=== PATIENT | male | born 1965 | race Caucasian/White ===

== ENCOUNTER 2020-04-09 10:27 | Outpatient (CLI) | payer OTHER, SELFPAY ==
--- NOTE | ~2020-04-09 | XR_ITS ---
EXAMINATION: XR chest 2V EXAM DATE: 04/09/2020 10:45 INDICATION: Midsternal chest pain, intermittent. TECHNIQUE: Frontal and lateral projections of the chest obtained and reviewed. Comparison is made to prior examination from 01/31/2016. FINDINGS: The lungs are clear. There are no pleural effusions. The cardiomediastinal silhouette is within normal limits. There is no pneumothorax suspected. The bones and soft tissues are unremarkab le. IMPRESSION: Unremarkable chest x-ray exam. Reviewed, dictated and finalized at location A.
== END 2020-04-09 10:28 | disposition home or self-care (01) ==
LOC: ANHIMG 10:32
PROVIDERS: PCP Family Medicine; Visit Provider Physician Assistant
DX: R07.89 Other chest pain (principal)
CPT/HCPCS: 71046

== ENCOUNTER 2022-02-19 12:09 | Outpatient (CLI) | payer OTHER, SELFPAY ==
--- NOTE | ~2022-02-19 | XR_ITS ---
EXAMINATION: XR foot RT min 3V DATE: 02/19/2022 12:29 INDICATION: Chronic right hindfoot pain at the calcaneus TECHNIQUE: Dorsoplantar, two oblique and lateral views of the right foot were obtained. COMPARISON: None. FINDINGS: Alignment is normal. Corticated ossicle at the tip of the lateral malleolus likely either chronic unu nited fracture or heterotopic ossification related to chronic lateral ankle sprain. Mild flattening o f the articular surface at the head of the second metatarsal consistent with osteonecrosis (Freiberg' s infraction). No acute fracture. Polyarticular osteoarthritis, moderate severity at the first metata rsophalangeal joint and mild at the calcaneocuboid and multiple tarsal metatarsal and interphalangeal joints. Moderate sized plantar calcaneal spur. No cortical erosions. Soft tissues are unremarkable. IMPRESSION: 1. Chronic degenerative and posttraumatic changes at the right foot and ankle as detailed above. No a cute osseous abnormality. Reviewed, dictated and finalized at location B. IMPRESSION: 1. Chronic degenerative and posttraumatic changes at the right foot and ankle a s detailed above. No acute osseous abnormality.
== END 2022-02-19 12:10 | disposition home or self-care (01) ==
PROVIDERS: PCP Family Medicine; Visit Provider Nurse Practitioner Family
DX: M19.071 Primary osteoarthritis, right ankle and foot (principal)
CPT/HCPCS: 73630

== ENCOUNTER 2022-07-16 12:08 | Outpatient (CLI) | payer OTHER, SELFPAY ==
--- NOTE | ~2022-07-16 | XR_ITS ---
EXAMINATION: XR chest 2V 07/16/2022 12:38 INDICATION: Dyspnea. Shortness of breath. PROCEDURE: 2 view chest COMPARISON: 04/09/2020 FINDINGS: The lungs are clear. The cardiomediastinal silhouette is within normal limits. There are no pleural effusions. There is no pneumothorax suspected. IMPRESSION: 1: NO ACUTE CARDIOPULMONARY DISEASE. Reviewed, dictated and finalized at location B.
== END 2022-07-16 12:09 | disposition home or self-care (01) ==
PROVIDERS: PCP Family Medicine; Visit Provider Family Medicine
DX: R06.09 Other forms of dyspnea (principal)
CPT/HCPCS: 71046

== ENCOUNTER 2022-07-28 09:10 | Outpatient (CLI) | payer OTHER, SELFPAY ==
--- NOTE | 2022-07-28 11:55 | WPDPFTINT ---
PFT Procedure Performed PFT Procedure Performed Spirometry with Pre/Post Bronchodilator Plethysmography (Lung Vol) Diffusing Cap (DLCO) Flow Vol Loop PFT Interpretation Lung volumes were measured with the body plethysmography method. The diminished expiratory reserve volume is related to obesity. The remaining lung volumes are unremarkable. Spirometry showed normal expiratory flow rates and a normal FEV1 to FVC ratio of 73%. Following administration of a bronchodilator there was no significant change in the expiratory flow rates. Lung diffusion capacity is within the normal range at 96% predicted. The flow volume loop is unremarkable. In comparison to previous study in 2016, the post bronchodilator FEV1 is now lower by approximately 0.3 L whereas post-bronchodilator FVC, total lung capacity and lung diffusion capacity are essentially unchanged. Impression: Spirometry, lung volumes, and lung diffusion capacity within the normal range.
== END 2022-07-28 09:11 | disposition home or self-care (01) ==
LOC: ANHPFT 09:11
PROVIDERS: PCP Family Medicine; Visit Provider Physician Assistant
DX: R06.09 Other forms of dyspnea (principal)
CPT/HCPCS: 94060; 94726; 94729

== ENCOUNTER 2024-01-21 17:12 | Emergency (ER) | payer OTHER, SELFPAY ==
--- NOTE | ~2024-01-21 | XR_ITS ---
EXAMINATION: XR lumbar spine 2-3V DATE: 01/21/2024 17:40 INDICATION: Left-sided low back pain. TECHNIQUE: 3 views of the lumbar spine were obtained. COMPARISON: None. FINDINGS: Bone alignment is normal. There is mild chronic anterior wedging of T12 vertebral body. Int ervertebral disc heights are normal. There are endplate osteophytes at all levels. There is multileve l mild to moderate facet joint osteoarthritis. IMPRESSION: 1. Mild lumbar spondylosis. Reviewed, dictated and finalized at location E. IMPRESSION: 1. Mild lumbar spondylosis.
[2024-01-21 17:21] VITALS: BP 146/79; PULSE 82; RESP 18; TEMP 37.1; O2SAT 97
--- NOTE | 2024-01-21 17:33 | ED.BACK ---
HPI - Back Pain/Injury General Chief Complaint: Back Pain/Injury Stated Complaint: Low Back Pain Time Seen by Provider: 01/21/24 17:30 Source: patient, RN notes reviewed and old records reviewed Mode of arrival: ambulatory Limitations: no limitations History of Present Illness HPI Narrative: 58 year old male presents to [facility] care with complaints of left lower back pain since the first week in December after pulling fence posts and moving wood which is not improving in spite of using heat, ice, taking Ibuprofen and Tylenol and doing stretches. Patient reports that he walks a lot at work and goes up stairs and this is aggravating pain. Patient reports that pain in in his left lower back denies any radiation of pain in his legs or any tingling or numbness to legs or feet. Patient reports no difficulty with bowel movement or urination, denies any saddle paraesthesia. MD elicited complaint: back pain Onset (ago): week(s) (4 weeks) Severity: moderate Quality: sharp (at times) and aching Location: lumbar spine (left SI area) Exacerbating factors: movement, walking and other (stairs) Treatments prior to arrival: cold therapy, heat therapy, NSAIDS, acetaminophen and other (stretches) Work related injury: No Related Data Allergies Allergy/AdvReac Type Severity Reaction Status Date / Time No Known Allergies Allergy Verified 01/21/24 17:21 Review of Systems Review of Systems: CONSTITUTIONAL: Denies fever, chills, or sweats. EYES: Denies visual changes, redness, or discharge. ENT: Denies rhinorrhea, congestion, sore throat, or otalgia. CARDIOVASCULAR: Denies chest pain, palpitations, or edema. RESPIRATORY: Denies cough or dyspnea. GASTROINTESTINAL: Denies abdominal pain, nausea, vomiting, or diarrhea. GENITOURINARY: Denies dysuria or hematuria. SKIN: Denies rash or itching. MUSCULOSKELETAL: Reports left lumbar back pain, joint pain, or myalgia. NEUROLOGIC: Denies headache, numbness, or weakness. PSYCHIATRIC: Denies anxiety or depression. All systems reviewed & are unremarkable except as noted in HPI and below PMFSH Past Medical History Medical History Diabetes Gout IFG (impaired fasting glucose) Mixed hyperlipidemia Osteoarthritis of right knee Wellness examination Surgical History Surgical History H/O hand surgery right S/P total knee arthroplasty r-side Family History Family History Father Hypertension Family history of coronary artery disease Mother Hypertension Family history of diabetes mellitus in first degree relative Social History Social History Social History: Smoking status: Former smoker Second hand tobacco smoke exposure: No Alcohol intake: current Drinks per week: 6 Substance use: never Substance use type: does not use Do You Feel Safe in your Home?: Yes Lack of Transportation: No Lack of Food: Never True Current Housing: I Have Housing Concerned About Future Housing: No Difficulty Paying Gas/Electric Bills: No Difficulty Paying for Meds: No Currently Unemployed: No Education: Don't Know Difficulty w/ Childcare or Family Care: No Living arrangements: with family Occupation/Education: occupation 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 There is no relevant family history pertinent to the presenting complaint Exam Narrative: GENERAL: Well-appearing, well-nourished, and in mild acute distress due to pain in left lumbar back region HEAD: Normocephalic
== END 2024-01-21 18:25 | disposition home or self-care (01) ==
PROVIDERS: Emergency Provider Registered Nurse; PCP Family Medicine
DX: M54.50 Low back pain, unspecified (principal); Z87.891 Personal history of nicotine dependence; E11.9 Type 2 diabetes mellitus without complications; M10.9 Gout, unspecified; E78.2 Mixed hyperlipidemia; M17.11 Unilateral primary osteoarthritis, right knee; Z96.651 Presence of right artificial knee joint
CPT/HCPCS: 72100; 99213; G0463

== ENCOUNTER 2025-03-20 11:29 | Outpatient (CLI) | payer OTHER, SELFPAY ==
--- NOTE | ~2025-03-20 | XR_ITS ---
Right Hand Technique: PA, oblique, and lateral views were obtained. Clinical History: Pain Findings: No acute fracture or dislocation is seen. Osseous alignment is anatomic. There is moderate degenerative change of the first CMC joint. There are mild degenerative changes scattered at the inte rphalangeal joints of the fingers. Soft tissues are unremarkable. Impression: Degenerative changes, as above. Reviewed, dictated and finalized at location . Impression: Degenerative changes, as above.
--- OUTSIDE RECORDS SUMMARY | 2025-03-20 11:56 | XMS_ITS | Referral Summary ---
Author Organization [facility] Address [address] [place] [address] Care Team Providers Care Oracle Database Developer Name Role Phone Cody Gregg MD Primary Care Provider Allergies No known active allergies Medications testosterone (TESTIM,VOGELXO ) 50 mg/5 gram (1 %) gel Apply topically every morning 0 Active lisinopriL (PRINIVIL,ZESTR IL) 10 mg tablet Take 10 mg by mouth every morning 0 Active vardenafiL (LEVITRA) 10 mg tablet Take 10 mg by mouth daily as needed 0 Active allopurinoL (ZYLOPRIM) 100 mg tablet Take 100 mg by mouth every morning 0 Active omeprazole (PriLOSEC) 40 mg capsule Take 40 mg by mouth every morning 0 Active pseudoephedrine (SUDAFED) 30 mg tabletIndicatio ns:Nasal Congestion Take 30 mg by mouth every 4 (four) hours as needed for congestion Active aspirin 325 mg enteric coated tabletIndicatio ns:Deep Vein Thrombosis Prevention Take 1 tablet (325 mg total) by mouth 2 (two) times a day 120 tablet 0 Active lidocaine (XYLOCAINE) 10 mg/mL (1 %) injection lidocaine (PF) 10 mg/mL (1 %) injection solution In office injection administered by the provider Active Active Problems Problem Noted Date Diagnosed Date Primary osteoarthritis of right knee 05/24/2020 Overview (05/24/2020): Added automatically from request for surgery [id number] 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 Overview (12/26/2016): TESTICULAR HYPOFUNC NEC Social History Tobacco Use Types Packs/Day Years Used Date Smoking Tobacco: Never Smokeless Tobacco: Never Alcohol Use Standard Drinks/Week Comments Yes 14 (1 standard drink = 0.6 oz pu re alcohol) Sex and Gender Information Value Date Recorded Sex Assigned at Not on file 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 Gender Identity Not on file Sexual Orientation Not on file Last Filed Vital Signs Vital Sign Reading Time Taken Comments Blood Pressure 139/60 06/08/2020 4:07 PM CDT Pulse 86 06/08/2020 4:07 PM CDT Temperature 37 C (98.6 F) 06/08/2020 4:07 PM CDT Respiratory Rate 16 06/08/2020 4:07 PM CDT Oxygen Saturation 97% 06/08/2020 4:07 PM CDT Inhaled Oxygen Concentration - - Weight 98.9 kg (218 lb) 06/07/2020 5:42 AM CDT Height 177 cm (5' 9.69) 06/07/2020 5:42 AM CDT Body Mass Index 31.56 06/07/2020 5:42 AM CDT Plan of Treatment Not on file Medical Devices Implanted Type Area Darkroom Technician Device Identifier Shelf Expiration Date Model / Serial / Lot [employer] tho [id number] [employer] Cruciate Retain Knee Right 6 Component - [id number] Implanted:Qty: 1 on 06/07/2020 by Boogie Keys MD at [facility] Right: Knee [employer] [id number] 03/07/2030 [id number] / / [id number] [employer] [id number] Lyn Ii Cement Right Knee 6 Baseplate Tibial Titanium - [id number] Implanted:Qty: 1 on 06/07/2020 by Boogie Keys MD at [facility] Right: Knee [employer] [id number] 11/14/2029 [id number] / / [id number] [employer] [id number] Legion 9mm Cruciate Retaining High Flexion Knee 5-6 Insert Tibial - [id number] Implanted:Qty: 1 on 06/07/2020 by Boogie Keys MD at [facility] Right: Knee [employer] [id number] 03/25/2030 [id number] / / [id number] [employer] tho [id number] Lyn Ii 35mm Resurface Component Patellar - [id number] Implanted:Qty: 1 on 06/07/2020 by Boogie Keys MD at [facility] Right: Knee [employer] [id number] 03/11/2030 [id number] / / [id number] [employer] 6191-1-010 Simplex P Radiopaque Full Dose Cement Bone Sterile - [id number] Implanted:Qty: 1 on 06/07/2020 by Boogie Keys MD at [facility] Right: Knee [employer] 6191-1-010 / / [employer] 6191-1-010 Simplex P Radiopaque Full Dose Cement Bone Sterile - [id number] Implanted:Qty: 1 on 06/07/2020 by Boogie Keys MD at [facility] Right: Knee [employer] 6191-1-010 / / Insurance [employer] HMO Member Subscriber Plan / Payer (Ef fective 2020-Present) Name:Johnie Flores Member ID:Not on file Relation to Subscriber:Not on file Subscriber ID:Not on file Payer ID:[id number] Group ID:Not on file Type:[employer] HMO/PPO Address[address] [facility] OPEN ACCESS Advance Directives For more information, please contact: [phone] * Full Code (Latest Code Status on File) Date Activated Date Inactivated Comments 06/07/2020 12:24 PM 06/08/2020 10:34 PM Care Teams Oracle Database Developer Relationship Specialty Start Date End Date Cody Gregg MD [address] [facility] [address] [place] [address] PCP - General Family Medicine 05/15/20
--- OUTSIDE RECORDS SUMMARY | 2025-03-20 11:56 | XMS_ITS | Clinical Summary ---
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 Overview (12/26/2016): TESTICULAR HYPOFUNC NEC Surgical History Surgery Date Site/Laterality Comments HAND SURGERY NASAL SEPTUM SURGERY Medical History Medical History Date Comments Hx Other Medical male hypogonadi sm GERD (gastroesophageal reflux disease) Hypertension Family History Medical History Relation Name Comments Coronary artery disease Brother 1 Yasmani nary artery disease; Hypertension Brother 2 Hypertension; Other Brother 3 No history of D iabetes mellitus; Heart disease Father Anesthesia problems Neg Hx Stroke Neg Hx Relation Name Status Comments Brother 1 Brother 2 Brother 3 Father Social History Tobacco Use Types Packs/Day Years Used Date Smoking Tobacco: Never Smokeless Tobacco: Never Alcohol Use Standard Drinks/Week Comments Yes 14 (1 standard drink = 0.6 oz pu re alcohol) Sex and Gender Information Value Date Recorded Sex Assigned at Not on file 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[employer] Gender Identity Not on file Sexual Orientation Not on file Obstetrics History Last Filed Vital Signs Vital Sign Reading [...] on file Medical Devices Implanted Type Area Supervisor [employer] Device Identifier Shelf Expiration Date Model / Serial / Lot [employer] tho [id number] Lyn [employer]i Legion Spc Cruciate Retain Knee Right 6 Component - [id number] Implanted:Qty: 1 on 06/07/2020 by Boogie Keys MD at [facility] Right: Knee [employer] [id number] 03/07/2030 [id number] / / [id number] [employer] [id number] Lyn Ii Cement Right Knee 6 Baseplate Tibial Titanium - [id number] Implanted:Qty: 1 on 06/07/2020 by Boogie Keys MD at [facility] Right: Knee [employer] [id number] 11/14/2029 [id number] / / [id number] [employer] [id number] Legion 9mm Cruciate Retaining High Flexion Knee 5-6 Insert Tibial - [id number] Implanted:Qty: 1 on 06/07/2020 by Boogie Keys MD at [facility] Right: Knee [employer] [id number] 03/25/2030 [id number] / / [id number] [employer] [id number] Lyn Ii 35mm Resurface Component Patellar - [id number] Implanted:Qty: 1 on 06/07/2020 by Boogie Keys MD at [facility] Right: Knee [employer] [id number] 03/11/2030 [id number] / / [id number] [employer] 6191-1-010 Simplex P Radiopaque Full Dose Cement Bone Sterile - [id number] Implanted:Qty: 1 on 06/07/2020 by Boogie Keys MD at [facility] Right: Knee [employer] 6191-1-010 / / [employer] 6191-1-010 Simplex P Radiopaque Full Dose Cement Bone Sterile - [id number] Implanted:Qty: 1 on 06/07/2020 by Boogie Keys MD at [facility] Right: Knee [employer] 6191-1-010 / / Insurance [facility] [id number] [employer] HMO Member Subscriber Plan / Payer (Ef fective 2020-Present) Name:Johnie Flores Member ID:Not on file Relation to Subscriber:Not on file Subscriber ID:Not on file Payer ID:[id number] Group ID:Not on file Type:[employer] HMO/PPO Address: [place] [id number] [address] [employer] OPEN ACCESS Advance Directives For more information, please contact: [phone] * Full Code (Latest Code Status on File) Date Activated Date Inactivated Comments 06/07/2020 12:24 PM 06/08/2020 10:34 PM Care Teams Water Commissioner Relationship Specialty Start Date End Date Cody Gregg MD [address] [facility] [address] [place] [address] PCP - General Family Medicine 05/15/20
--- OUTSIDE RECORDS SUMMARY | 2025-03-20 11:56 | XMS_ITS | Clinical Summary ---
Author Organization [facility] Address [address] [address] Phone Care Team Providers Care Chicken Cutter Name Role Phone Cody Gregg MD Primary Care Provider Allergies No known active allergies Medications allopurinol (ZYLOPRIM) 100 MG Tablet 07/21/2017 Active CIALIS 20 MG Tablet 07/21/2017 Active testosterone (ANDROGEL) 50 MG/5GM (1%) Gel 07/21/2017 Act roddy TraZODone & Diet Manage Prod (TRAZAMINE) 50 MG Misc Take by mouth nightly. Active cetirizine (ZYRTEC ALLERGY) 10 MG Tablet Take 10 mg by mouth daily. Active naproxen sodium (ANAPROX) 220 MG TabletIndication s:pt takes as needed Take 220 mg by mouth 2 times daily (with meals). Active ascorbic acid (ASCORBIC ACID) 500 MG Tablet Take 500 mg by mouth daily. Active Cyanocobalamin (VITAMIN B 12 PO) Take by mouth. Active omeprazole (PRILOSEC) 40 MG CAPSULE DELAYED RELEASE Take 1 Cap by mouth daily. 90 Cap 08/06/2018 Active Family History Medical History Relation Name Comments Heart Disease Father Diabetes Mother Hypertension Mother Colon Cancer Paternal Grandfather ? Relation Name Status Comments Father Alive Mother Alive Paternal Grandfather Social History Tobacco Use Types Packs/Day Years Used Date Smoking Tobacco: Never Smokeless Tobacco: Never Alcohol Use Standard Drinks/Week Comments Yes 0 (1 standard drink = 0.6 oz pur e alcohol) Sex and Gender Information Value Date Recorded Sex Assigned at Not on file Legal Sex Male 7:13 PM CDT Gender Identity Not on file Sexual Orientation Not on file Last Filed Vital Signs Vital Sign Reading Time Taken Comments Blood Pressure 134/88 08/17/2017 9:22 AM COST ESTIMATING CLERK Pulse 83 08/17/2017 9:22 AM COST ESTIMATING CLERK Temperature 35.9 C (96.7 F) 08/17/2017 9:22 AM COST ESTIMATING CLERK Respiratory Rate 18 08/17/2017 9:22 AM COST ESTIMATING CLERK Oxygen Saturation 93% 08/17/2017 9:22 AM COST ESTIMATING CLERK Inhaled Oxygen Concentration - - Weight 101.2 kg (223 lb) 08/17/2017 9:22 AM COST ESTIMATING CLERK Height 177.8 cm (5' 10) 08/17/2017 9:22 AM COST ESTIMATING CLERK Body Mass Index 32 08/17/2017 9:22 AM COST ESTIMATING CLERK Plan of Treatment Health Maintenance Due Date Last Done Comments Hepatitis C Virus (HCV) Screening 1967 TdaP Immunization 1967 Hepatitis B Immunization (1 of 3 - 19+ 3-dose series) 1986 Colonoscopy 2012 Colorectal Cancer Screening 2012 Cologuard 2017 Immunochemical Fecal Occult Blood 2017 Pneumococcal Immunization (5 0+ years) (1 of 1 - PCV) 2017 Zoster Immunization (1 of 2) 2017 PSA Discussion 2022 Influenza Immunization (#1) 2024 SARS-COV-2 Immunization ( - 2023- season) 2024 Respiratory Syncytial Virus (RSV) Immunization (Adult) (1 - 1-dose 75+ series) 2042 Meningococcal Immunization (ACWY) Aged Out No longer eligible based on patient's age to complete this topic Pneumococcal Immunization Combined Aged Out No longer eligible based on patient's age to complete this topic Rotavirus Immunization Aged Out No lo nger eligible based on patient's age to complete this topic Insurance Disrupt [facility] OAP Care Teams Chicken Cutter Relationship Specialty Start Date End Date Cody Gregg MD [address] [place] [address] PCP - General Family Medicine 08/17/17
== END 2025-03-20 11:30 | disposition home or self-care (01) ==
PROVIDERS: PCP Family Medicine; Visit Provider Physician Assistant
DX: M18.9 Osteoarthritis of first carpometacarpal joint, unspecified (principal); M19.041 Primary osteoarthritis, right hand
CPT/HCPCS: 73130

== ENCOUNTER 2025-06-29 00:09 | Day surgery (SDC) | payer OTHER, SELFPAY ==
[2025-06-20 10:39] VITALS: BMI 33.0
[2025-06-29 06:21] VITALS: BP 116/67; PULSE 76; RESP 18; TEMP 36.2; O2SAT 100
[2025-06-29] MEDS: LACTATED RINGERS 1,000 ML 150 ML IV CONT (06:36)
--- NOTE | 2025-06-29 07:28 | PM.HPGS ---
History of Present Illness History of Present Illness Consent: Risks, benefits, and alternatives have been discussed and questions answered. Patient agrees to proceed with procedure. Chief complaint: Personal history of colon polyps, unspecified Narrative: Johnie Flores is a 60 year old male with colon polyp in 2017 Review of Systems Review of Systems: All systems reviewed & are unremarkable except as noted in HPI and below PMFSH Past Medical History Medical History (Updated 06/29/25 @ 07:30 by Juventino Khalil MD) Colon polyp Diabetes IFG (impaired fasting glucose) Mixed hyperlipidemia Gout Wellness examination Osteoarthritis of right knee Surgical History Surgical History H/O hand surgery right S/P total knee arthroplasty r-side Family History Family History Father Hypertension Family history of coronary artery disease Mother Hypertension Family history of diabetes mellitus in first degree relative Social History Social History Social History: Smoking status: Never smoker Second hand tobacco smoke exposure: No Alcohol intake: current Drinks per week: 6 Substance use: never Substance use type: does not use Do You Feel Safe in your Home?: Yes Lack of Transportation: No Lack of Food: Never True Current Housing: I Have Housing Concerned About Future Housing: No Difficulty Paying Gas/Electric Bills: No Difficulty Paying for Meds: No Currently Unemployed: No Education: Don't Know Difficulty w/ Childcare or Family Care: No Living arrangements: with family Occupation/Education: occupation 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 Gender identity (if verbalized by the patient): Male Sexual Orientation (if Verbalized by the Patient): Straight or Heterosexual Spiritual care concerns: No Meds Home Medications and Allergies Home Medications ?Medication ?Instructions ?Recorded ?Confirmed ?Type blood-glucose meter (Accu-Chek #1 ea 02/08/24 03/20/25 Rx Guide Glucose Meter) lancets (Accu-Chek Fastclix Lancet #100 ea 02/08/24 03/20/25 Rx Drum) pen needle, diabetic 32 gauge x #100 ea 02/29/24 03/20/25 Rx 5/32 (BD Ultra-Fine Nithya Pen Needle) blood sugar diagnostic (Accu-Chek #100 ea 07/24/24 03/20/25 Rx Guide test strips) atorvastatin 20 mg tablet See Rx Instructions .Route 10/12/24 06/20/25 Rx .COMPLEX #90 tabs vardenafil 10 mg tablet See Rx Instructions .Route 10/27/24 06/20/25 Rx .COMPLEX #18 tabs omeprazole 40 mg capsule,delayed See Rx Instructions .Route 01/06/25 06/20/25 Rx release .COMPLEX #90 caps semaglutide 1 mg/dose (4 mg/3 mL) 1 mg (0.75 mL) subcut WEEKLY #3 mL 03/20/25 06/20/25 Rx subcutaneous pen injector testosterone 50 mg/5 gram (1 %) 200 mg transdermal QAM 90 days 03/27/25 Rx transdermal gel #1,800 grams allopurinol 100 mg tablet See Rx Instructions .Route 04/12/25 06/20/25 Rx .COMPLEX #180 tabs tamsulosin 0.4 mg capsule 0.8 mg (2 x 0.4 mg) PO DAILY #180 04/12/25 06/20/25 Rx caps fenofibrate 160 mg tablet 160 mg PO DAILY #90 tabs 04/24/25 06/20/25 Rx lisinopril 30 mg tablet 30 mg PO DAILY #90 tabs 05/02/25 06/20/25 Rx acetaminophen 325 mg tablet 325 mg PO ONCE PRN pain 06/20/25 06/20/25 History (Aminofen) Allergies Allergy/AdvReac Type Severity Reaction Status Date / Time No Known Allergies Allergy Verified 06/29/25 06:20 Vital Signs Vital Signs - 24 hr 06/29/25 06:21 Temperature 97.1 F L Pulse Rate 76 Respiratory Rate 18 Blood Pressure 116/67 Pulse Oximetry 100 Oxygen Delivery Room Air Exam Const: General: comfortable and no acute distress HENMT: Face/Nose/Sinus: Normal nares present Eyes: General: appearance normal, both eyes and all related structures Neck: Neck: no JVD Resp: Auscultation: clear to auscultation bilaterally Cardio: Rate: regular rate Rhythm: regular rhythm GI: Inspection: non-distended GI Palp: Yes Soft to palpation Skin: General skin exam: normal color Extrem: General: normal to inspection Psych: Mental Status: mental status grossly normal Assessment and Plan Assessment and plan (1) Colon polyp: Code(s): K63.5 - Polyp of colon Status: Acute Assessment and Plan: colonoscopy
--- NOTE | 2025-06-29 07:29 | WPDANESEPPF ---
Anes - Initial Pre Proc Eval Procedure: Operation Date: 06/29/25 07:30 Proposed Procedures p Screening Colonoscopy - Juventino Khalil MD Date/Time: 06/29/25 07:29 Surgeon: Juventino Khalil MD Pre Op Diagnosis: Personal history of colon polyps, unspecified Patient Data Age: 60 Gender: M Height: 1.78 m Weight: 101.4 kg Last Vital Signs Temp 97.1 F L 06/29/25 06:21 Pulse 76 06/29/25 06:21 Resp 18 06/29/25 06:21 BP 116/67 06/29/25 06:21 Pulse Ox 100 06/29/25 06:21 O2 Del Method Room Air 06/29/25 06:21 Allergies Allergy/AdvReac Type Severity Reaction Status Date / Time No Known Allergies Allergy Verified 06/29/25 06:20 Home Medications ?Medication ?Instructions ?Recorded ?Confirmed ?Type blood-glucose meter (Accu-Chek #1 ea 02/08/24 03/20/25 Rx Guide Glucose Meter) lancets (Accu-Chek Fastclix Lancet #100 ea 02/08/24 03/20/25 Rx Drum) pen needle, diabetic 32 gauge x #100 ea 02/29/24 03/20/25 Rx 5/32 (BD Ultra-Fine Nithya Pen Needle) blood sugar diagnostic (Accu-Chek #100 ea 07/24/24 03/20/25 Rx Guide test strips) atorvastatin 20 mg tablet See Rx Instructions .Route 10/12/24 06/20/25 Rx .COMPLEX #90 tabs vardenafil 10 mg tablet See Rx Instructions .Route 10/27/24 06/20/25 Rx .COMPLEX #18 tabs omeprazole 40 mg capsule,delayed See Rx Instructions .Route 01/06/25 06/20/25 Rx release .COMPLEX #90 caps semaglutide 1 mg/dose (4 mg/3 mL) 1 mg (0.75 mL) subcut WEEKLY #3 mL 03/20/25 06/20/25 Rx subcutaneous pen injector testosterone 50 mg/5 gram (1 %) 200 mg transdermal QAM 90 days 03/27/25 Rx transdermal gel #1,800 grams allopurinol 100 mg tablet See Rx Instructions .Route 04/12/25 06/20/25 Rx .COMPLEX #180 tabs tamsulosin 0.4 mg capsule 0.8 mg (2 x 0.4 mg) PO DAILY #180 04/12/25 06/20/25 Rx caps fenofibrate 160 mg tablet 160 mg PO DAILY #90 tabs 04/24/25 06/20/25 Rx lisinopril 30 mg tablet 30 mg PO DAILY #90 tabs 05/02/25 06/20/25 Rx acetaminophen 325 mg tablet 325 mg PO ONCE PRN pain 06/20/25 06/20/25 History (Aminofen) Laboratory Tests 06/29/25 06:34 POC Capillary Glucose 105 mg/dl (65-105) Patient hx anesthesia problems: none Family hx anesthesia problems: none Results Review: All pre-operative results and documents have been reviewed as part of the pre-operative evaluation. [facility] Past Medical History Medical History Diabetes IFG (impaired fasting glucose) Mixed hyperlipidemia Gout Wellness examination Osteoarthritis of right knee Surgical History Surgical History H/O hand surgery right S/P total knee arthroplasty r-side Family History Family History Father Hypertension Family history of coronary artery disease Mother Hypertension Family history of diabetes mellitus in first degree relative Social History Social History Social History: Smoking status: Never smoker Second hand tobacco smoke exposure: No Alcohol intake: current Drinks per week: 6 Substance use: never Substance use type: does not use Do You Feel Safe in your Home?: Yes Lack of Transportation: No Lack of Food: Never True Current Housing: I Have Housing Concerned About Future Housing: No Difficulty Paying Gas/Electric Bills: No Difficulty Paying for Meds: No Currently Unemployed: No Education: Don't Know Difficulty w/ Childcare or Family Care: No Living arrangements: with family Occupation/Education: occupation 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 Gender identity (if verbalized by the patient): Male Sexual Orientation (if Verbalized by the Patient): Straight or Heterosexual Spiritual care concerns: No Anes - Eval Final PreProcedure Day of Procedure 06/29/25 07:29 Patient weight: obese Lungs: normal air movement Airway: Mallampati scale class II Neurological: alert and oriented Last oral intake: >/= 8 hours ASA classification: III Emergent: no Anesthetic plan: proceed Anesthesia type and monitoring: general GIVS and standard monitoring Results Review: All pre-operative results and documents have been reviewed as part of the pre-operative evaluation. HTN, hyperlipidemia, hx of GLP1 use, off 3 days without early satiety/nausea. Informed Consent: The patient's anesthetic plan and its attendant risks and benefits were discussed with the patient/family/POA. Questions were solicited and answers provided to the satisfaction of the patient/family/POA.
--- NOTE | 2025-06-29 07:42 | S_PTH ---
PATIENT: Johnie Flores LOC: [facility]#:[id number] AGE/SX: 60/M ROOM: RE06/29/[address]: Juventino Khalil MD : [id number] BED: DIS: 06/29/2025 SPEC #: [id number] RECD: 06/29/25 08:44 STATUS: YESY RESonja #: [id number] BRIANA: 06/29/25 07:[address]: Juventino Khalil DEPT: [facility] Surgical RECD BY: Vandana Gray ENTERED: 06/29/25 08:45 SP TYPE: Surgical OTHR DR: Cody Gregg MD Tissues: A - Colon Polypectomy B - Colon Polypectomy C - Colon Polypectomy Procedures: Hematoxylin and Eosin Stain Gross and Microscopic Level 4
[2025-06-29 07:45] VITALS: BP 88/55; PULSE 68; RESP 20; O2SAT 98
[2025-06-29 07:55] VITALS: BP 104/64; PULSE 67; RESP 18; O2SAT 98
[2025-06-29 08:05] VITALS: BP 105/68; PULSE 70; RESP 18; O2SAT 99
== END 2025-06-29 08:11 | disposition home or self-care (01) ==
PROVIDERS: PCP Family Medicine; Referring Provider Physician Assistant; Visit Provider Internal Medicine Gastroenterology
PROC: 0DJD8ZZ Inspection of Lower Intestinal Tract, Via Natural or Artificial Opening Endoscopic (ICD-10-PCS; CPT 45378; principal; 2025-06-29 07:30)
DX: Z12.11 Encounter for screening for malignant neoplasm of colon (principal); D12.2 Benign neoplasm of ascending colon; D12.3 Benign neoplasm of transverse colon; D12.8 Benign neoplasm of rectum; K57.30 Diverticulosis of large intestine without perforation or abscess without bleeding; I10 Essential (primary) hypertension; E11.9 Type 2 diabetes mellitus without complications; E78.2 Mixed hyperlipidemia; M17.11 Unilateral primary osteoarthritis, right knee; M10.9 Gout, unspecified; E66.9 Obesity, unspecified; Z68.32 Body mass index [BMI] 32.0-32.9, adult; Z79.85 Long-term (current) use of injectable non-insulin antidiabetic drugs; Z98.890 Other specified postprocedural states; Z82.49 Family history of ischemic heart disease and other diseases of the circulatory system
CPT/HCPCS: 45385; 82948; 88305; J2003; J2704; J7120